=== PATIENT | male | born 1970 | race African-American/Black ===

== ENCOUNTER 2020-03-24 21:51 | Inpatient (IN) | payer OTHER ==
[~2020-03-24] VITALS: Ht 193 cm; Wt 74.1 kg
[2020-03-24] MEDS ORDERED: SODIUM CHLORIDE 0.9% 1,000 ML IV ONE (22:00)
[2020-03-24] MEDS ORDERED: PIPERACILLIN-TAZOB 3.375GM 100 ML IV ONE (22:00)
[2020-03-24] MEDS ORDERED: VANCOMYCIN 1GM/250ML 250 ML IV ONE (22:00)
[2020-03-24] MEDS ORDERED: ONDANSETRON ODT 4 MG TAB PO ONE (22:00)
[2020-03-25] MEDS ORDERED: HYDROcodone-ACET 10/325MG TAB PO ONE (00:15)
[2020-03-25] MEDS ORDERED: ACETAMINOPHEN 325 MG TAB PO ONE (01:45)
[2020-03-25 01:48] LABS: Basophils # (auto) 0 10 ^3/uL (0-0.2); Basophils % (auto) 0.2 % (0.0-2.0); Eosinophils # (auto) 0 10 ^3/uL (0-0.8); Hematocrit 35.4 % (41.0-53.0); Hemoglobin 12.1 g/dL (13.5-17.5); Lymphocytes # (auto) 1.6 10 ^3/uL (0.4-5.4); Lymphocytes % (auto) 7.4 % (10.0-50.0); Mean Corpuscular Hemoglobin 30.7 pg (28.0-32.0); Mean Corpuscular Hgb Conc. 34.1 g/dL (32.0-36.0); Mean Corpuscular Volume 89.8 fL (80.0-100.0); Monocytes # (auto) 1.1 10 ^3/uL (0-1.3); Monocytes % (auto) 5.2 % (0.0-12.0); Neutrophils # (auto) 18.3 10 ^3/uL (1.6-8.6); Neutrophils % (auto) 87.2 % (37.0-80.0); Nucleated Red Blood Cells % 0.2 %; Platelet Count (auto) 356 10^3/uL (140-450); Red Blood Cells 3.94 10^6/uL (4.5-5.90); Red Cell Distribution Width 13.8 % (11.8-14.3)
[2020-03-25] MEDS: SODIUM CHLORIDE 0.9% 1,000 ML IV SCH ×2 (02:00→21:13)
[2020-03-25 02:11] LABS: Alanine Aminotransferase 15 U/L (16-61); Albumin 2.5 g/dL (3.4-5.0); Anion Gap 10 (5-15); Aspartate Aminotransferase 21 U/L (15-37); BUN/Creatinine Ratio 12.8; Blood Urea Nitrogen 18 mg/dL (7-18); Carbon Dioxide 26 mmol/L (21-32); Chloride 94 mmol/L (98-107); GFR African American 69 mL/min; GFR Non-African American 57 mL/min; Glucose 95 mg/dL (74-106); Magnesium 2.1 mg/dL (1.6-2.6); Potassium 3.5 mmol/L (3.5-5.1); Sodium 130 mmol/L (136-145)
[2020-03-25 02:16] LABS: Alkaline Phosphatase 95 U/L (45-117); Total Protein 7.7 g/dL (6.4-8.2)
[2020-03-25 02:35] LABS: INR 1.04 (0.9-1.15); Partial Thromboplastin Time 33.8 sec (23.0-31.2)
[2020-03-25] MEDS ORDERED: SODIUM CHLORIDE 0.9% 500 ML IV ONE (04:45)
[2020-03-25] MEDS ORDERED: NITROGLYCERIN 0.4 MG SL TAB SL PRN (04:45)
[2020-03-25] MEDS ORDERED: ONDANSETRON HCL 4 MG/2 ML VIAL IV PRN (04:45)
[2020-03-25] MEDS ORDERED: SODIUM CHLORIDE 0.9% 1,000 ML IV ONE (04:45)
[2020-03-25] MEDS ORDERED: MORPHINE SULF INJ 2 MG/ML SYRINGE 1ML IV PRN (04:45)
[2020-03-25] MEDS ORDERED: ACETAMINOPHEN 325 MG TAB PO PRN (04:45)
[2020-03-25] MEDS ORDERED: DOCUSATE SOD 100 MG CAP PO PRN (04:45)
[2020-03-25] MEDS ORDERED: VANCOMYCIN PER PHARMACY 0 MG IV SCH (04:45)
[2020-03-25] MEDS: PIPERACILLIN-TAZOB 3.375GM 100 ML IV SCH ×3 (06:00→21:13)
[2020-03-25 06:17] LABS: Hematocrit 34.4 % (41.0-53.0); Hemoglobin 11.3 g/dL (13.5-17.5); Mean Corpuscular Hemoglobin 29.7 pg (28.0-32.0); Mean Corpuscular Hgb Conc. 32.9 g/dL (32.0-36.0); Mean Corpuscular Volume 90.4 fL (80.0-100.0); Platelet Count (auto) 305 10^3/uL (140-450); White Blood Cell 18.2 10^3/uL (4.4-10.8)
[2020-03-25 06:39] LABS: Albumin 2.1 g/dL (3.4-5.0); Calcium 7.4 mg/dL (8.5-10.1); Potassium 3.4 mmol/L (3.5-5.1)
[2020-03-25 06:44] LABS: BUN/Creatinine Ratio 13.9; Bilirubin, Total 0.9 mg/dL (0.2-1.0); Total Protein 6.4 g/dL (6.4-8.2)
[2020-03-25 06:51] LABS: Basophils % (manual) 0 (0.0-2.0); Blast Cells 0; Eosinophils % (manual) 0 (0-7); Metamyelocytes % 0; Myelocytes % 0; Promyelocytes % 0; Reactive Lymphocytes 0
[2020-03-25] MEDS: MULTIPLE VITAMIN TAB PO SCH (10:08)
[2020-03-25] MEDS: ZINC SULFATE 220mg CAP or TAB PO SCH (10:08)
[2020-03-25] MEDS: PANTOPRAZOLE 40 MG/10 ML VIAL INJ IV SCH (10:08)
[2020-03-25] MEDS: HEPARIN SODIUM (PORCINE) 5000 UNITS/ML 1ML VIAL SC SCH ×2 (10:11→21:23)
[2020-03-25 10:47] LABS: Band Neutrophils % (manual) 7; Lymphocytes % (manual) 8 (10.0-50.0); Monocytes % (manual) 5 (0-12)
[2020-03-25] MEDS: MORPHINE SULFATE 4 MG/ML SYR/VIAL IV PRN ×2 (11:38→17:11)
[2020-03-25 12:21] LABS: Urine Bacteria NONE SEEN /hpf (None Seen); Urine Blood Negative /uL (Negative); Urine Specific Gravity 1.011 (1.001-1.035); Urine WBC 13 /hpf (0 - 3)
[2020-03-25 12:37] LABS: Amphetamine Screen, Urine POSITIVE (NEGATIVE); Barbiturate Scree,Urine NEGATIVE (NEGATIVE); Benzodiazephine Screen, Urine NEGATIVE (NEGATIVE); Cannabinoid Screen, Urine POSITIVE (NEGATIVE); Cocaine Screen, Urine NEGATIVE (NEGATIVE); Opiate Scree,Urine NEGATIVE (NEGATIVE); Phencyclidine Screen, Urine POSITIVE (NEGATIVE)
[2020-03-25 12:44] LABS: Alcohol, Urine < 3.0 mg/dL (0-10)
[2020-03-25 13:00] VITALS: BP 107/54
[2020-03-25 17:00] VITALS: BP 103/52
[2020-03-25] MEDS: VANCOMYCIN 1GM/250ML 250 ML IV SCH (17:15)
[2020-03-25 21:00] VITALS: BP 94/45
[2020-03-26 04:27] LABS: Basophils # (auto) 0.1 10 ^3/uL (0-0.2); Basophils % (auto) 0.3 % (0.0-2.0); Eosinophils # (auto) 0 10 ^3/uL (0-0.8); Eosinophils % (auto) 0.1 % (0.0-7.0); Hematocrit 31.5 % (41.0-53.0); Hemoglobin 10.6 g/dL (13.5-17.5); Lymphocytes # (auto) 2.5 10 ^3/uL (0.4-5.4); Lymphocytes % (auto) 11.4 % (10.0-50.0); Mean Corpuscular Hemoglobin 30.2 pg (28.0-32.0); Mean Corpuscular Hgb Conc. 33.7 g/dL (32.0-36.0); Mean Corpuscular Volume 89.7 fL (80.0-100.0); Monocytes # (auto) 1.8 10 ^3/uL (0-1.3); Monocytes % (auto) 8.3 % (0.0-12.0); Neutrophils # (auto) 17.8 10 ^3/uL (1.6-8.6); Neutrophils % (auto) 79.9 % (37.0-80.0); Platelet Count (auto) 323 10^3/uL (140-450); Red Blood Cells 3.51 10^6/uL (4.5-5.90); Red Cell Distribution Width 13.8 % (11.8-14.3); White Blood Cell 22.2 10^3/uL (4.4-10.8)
[2020-03-26] MEDS: VANCOMYCIN 1GM/250ML 250 ML IV SCH ×2 (04:41→18:40)
[2020-03-26] MEDS: HYDROcodone-ACET 5/325MG TAB PO PRN ×4 (04:42→22:48)
[2020-03-26 04:47] LABS: Albumin 1.8 g/dL (3.4-5.0); BUN/Creatinine Ratio 11.3; Calcium 7.6 mg/dL (8.5-10.1); Potassium 4.1 mmol/L (3.5-5.1)
[2020-03-26 04:50] LABS: Bilirubin, Total 0.7 mg/dL (0.2-1.0); Total Protein 6.3 g/dL (6.4-8.2)
[2020-03-26 05:00] VITALS: BP 103/52
[2020-03-26] MEDS: PIPERACILLIN-TAZOB 3.375GM 100 ML IV SCH ×3 (05:57→21:59)
[2020-03-26] MEDS: MORPHINE SULFATE 4 MG/ML SYR/VIAL IV PRN ×2 (08:24→12:58)
[2020-03-26 09:00] VITALS: BP 103/60
[2020-03-26] MEDS: ZINC SULFATE 220mg CAP or TAB PO SCH (10:01)
[2020-03-26] MEDS: MULTIPLE VITAMIN TAB PO SCH (10:01)
[2020-03-26] MEDS: HEPARIN SODIUM (PORCINE) 5000 UNITS/ML 1ML VIAL SC SCH ×2 (10:07→22:00)
[2020-03-26] MEDS: PANTOPRAZOLE 40 MG/10 ML VIAL INJ IV SCH (10:08)
[2020-03-26 13:00] VITALS: BP 97/51
[2020-03-26] MEDS: SODIUM CHLORIDE 0.9% 1,000 ML IV SCH (16:02)
[2020-03-26 17:00] VITALS: BP 108/60
[2020-03-26] MEDS ORDERED: PANTOPRAZOLE 40 MG/10 ML VIAL INJ IV ONE (18:45)
[2020-03-26 22:58] VITALS: BP 106/55
[2020-03-27] MEDS: VANCOMYCIN 1GM/250ML 250 ML IV SCH ×3 (01:30→21:05)
[2020-03-27] MEDS: PIPERACILLIN-TAZOB 3.375GM 100 ML IV SCH ×3 (06:10→22:14)
[2020-03-27] MEDS: SODIUM CHLORIDE 0.9% 1,000 ML IV SCH ×2 (06:45→23:25)
[2020-03-27 08:00] VITALS: BP 116/61
[2020-03-27] MEDS: MULTIPLE VITAMIN TAB PO SCH (09:05)
[2020-03-27] MEDS: ZINC SULFATE 220mg CAP or TAB PO SCH (09:05)
[2020-03-27] MEDS: PANTOPRAZOLE 40 MG/10 ML VIAL INJ IV SCH (09:05)
[2020-03-27] MEDS: HEPARIN SODIUM (PORCINE) 5000 UNITS/ML 1ML VIAL SC SCH ×2 (09:06→22:15)
[2020-03-27] MEDS: MORPHINE SULFATE 4 MG/ML SYR/VIAL IV PRN (09:06)
[2020-03-27] MEDS: HYDROcodone-ACET 5/325MG TAB PO PRN ×2 (11:59→22:23)
[2020-03-27 19:37] LABS: Basophils # (auto) 0.2 10 ^3/uL (0-0.2); Basophils % (auto) 0.9 % (0.0-2.0); Eosinophils # (auto) 0 10 ^3/uL (0-0.8); Hematocrit 30.5 % (41.0-53.0); Hemoglobin 10.1 g/dL (13.5-17.5); Lymphocytes # (auto) 1.5 10 ^3/uL (0.4-5.4); Lymphocytes % (auto) 6.2 % (10.0-50.0); Mean Corpuscular Hemoglobin 29.8 pg (28.0-32.0); Mean Corpuscular Hgb Conc. 33.3 g/dL (32.0-36.0); Mean Corpuscular Volume 89.5 fL (80.0-100.0); Monocytes # (auto) 1.5 10 ^3/uL (0-1.3); Monocytes % (auto) 6.1 % (0.0-12.0); Neutrophils # (auto) 20.7 10 ^3/uL (1.6-8.6); Neutrophils % (auto) 86.8 % (37.0-80.0); Platelet Count (auto) 414 10^3/uL (140-450); White Blood Cell 23.8 10^3/uL (4.4-10.8)
[2020-03-27 22:00] VITALS: BP 88/44
[2020-03-28 05:01] VITALS: BP 90/58
[2020-03-28] MEDS: PIPERACILLIN-TAZOB 3.375GM 100 ML IV SCH (05:43)
[2020-03-28] MEDS: HYDROcodone-ACET 5/325MG TAB PO PRN (08:28)
[2020-03-28 09:15] LABS: Basophils % (auto) 0.2 % (0.0-2.0); Eosinophils # (auto) 0 10 ^3/uL (0-0.8); Eosinophils % (auto) 0.2 % (0.0-7.0); Hemoglobin 10.2 g/dL (13.5-17.5); Lymphocytes # (auto) 1.9 10 ^3/uL (0.4-5.4); Mean Corpuscular Hemoglobin 29.9 pg (28.0-32.0); Mean Corpuscular Hgb Conc. 33.4 g/dL (32.0-36.0); Neutrophils # (auto) 18.8 10 ^3/uL (1.6-8.6); Nucleated Red Blood Cells % 0.1 %
[2020-03-28 09:19] LABS: Basophils # (auto) 0 10 ^3/uL (0-0.2); Hematocrit 30.4 % (41.0-53.0); Lymphocytes % (auto) 8.7 % (10.0-50.0); Mean Corpuscular Volume 89.3 fL (80.0-100.0); Monocytes # (auto) 1.4 10 ^3/uL (0-1.3); Monocytes % (auto) 6.1 % (0.0-12.0); Neutrophils % (auto) 84.8 % (37.0-80.0); Platelet Count (auto) 468 10^3/uL (140-450); White Blood Cell 22.2 10^3/uL (4.4-10.8)
[2020-03-28 09:36] LABS: Calcium 8.1 mg/dL (8.5-10.1)
[2020-03-28 09:53] LABS: BUN/Creatinine Ratio 9.3; Potassium 3.8 mmol/L (3.5-5.1)
[2020-03-28] MEDS: ZINC SULFATE 220mg CAP or TAB PO SCH (10:00)
[2020-03-28] MEDS ORDERED: VANCOMYCIN 1GM/250ML 250 ML IV SCH (10:00)
[2020-03-28] MEDS: MULTIPLE VITAMIN TAB PO SCH (10:00)
[2020-03-28] MEDS: HEPARIN SODIUM (PORCINE) 5000 UNITS/ML 1ML VIAL SC SCH (10:00)
[2020-03-28] MEDS: PANTOPRAZOLE 40 MG/10 ML VIAL INJ IV SCH (10:00)
[2020-03-28] MEDS ORDERED: AMPICILLIN INJ 1 GM in SODIUM CHL 0.9% 50 ML IV SCH (12:00)
== END 2020-03-28 09:00 | disposition left against medical advice (07) | DRG 872 ==
LOC: ER 21:51 → TELE 21:52 → TELE-WESTW 03-25 10:48 → WEST WING 03-26 20:44
PROVIDERS: ADMIT Nurse Practitioner Family; ATTEND Family Medicine
DX: A41.9 Sepsis, unspecified organism (principal); L03.116 Cellulitis of left lower limb; E87.1 Hypo-osmolality and hyponatremia; E44.0 Moderate protein-calorie malnutrition; Z20.828 Contact with and (suspected) exposure to other viral communicable diseases; F12.10 Cannabis abuse, uncomplicated; M17.10 Unilateral primary osteoarthritis, unspecified knee; B95.1 Streptococcus, group B, as the cause of diseases classified elsewhere; Z71.51 Drug abuse counseling and surveillance of drug abuser; Z88.5 Allergy status to narcotic agent; Z87.81 Personal history of (healed) traumatic fracture; Z88.1 Allergy status to other antibiotic agents
CPT/HCPCS: 36415; 71045; 71275; 73700; 80048; 80053; 80202; 80307; 80320; 81001; 82565; 83605; 83735; 83880; 84484; 85007; 85025; 85027; 85379; 85610; 85730; 87040; 87077; 87186; 87205; 93005; 93971; 96361; 96365; 96367; 96375; C9113; G0378; J2543